=== PATIENT | male | born 1960 | race Caucasian/White ===

== ENCOUNTER 2016-09-08 14:03 | Day surgery (SDC) | payer OTHER ==
[~2016-09-08] VITALS: Ht 175.3 cm; Wt 86.6 kg
[~2016-09-08 14:03] MED LIST: ALBU18HF INH; BENZ200C44 PO; FERR325T39 PO; Lactated Ringer's 1,000 ML IV ONE; OMEP20TA24 PO; OMEP40CA36 PO; RANI75TA21 PO; Sodium Chloride LOK Flush 10 mL Syringe IV PRN; [UNRECOGNIZED DRUG - CODE] PO; fentaNYL-PF 50 mCg/mL 2 mL Inj IVPUSH PRN
[2016-09-08] MEDS ORDERED: Phenylephrine/NS 100 mCg/mL 10 mL Syringe IVPUSH ONE (14:04)
[2016-09-08] MEDS ORDERED: Ketamine 10 mg/mL 20 mL Inj ONE (14:04)
[2016-09-08] MEDS ORDERED: Propofol 10,000 mCg/mL 20 mL Inj ONE (14:04)
[2016-09-08 14:34] VITALS: BP 123/79; PULSE 89; RESP 14; O2SAT 96
[2016-09-08] MEDS: 0.9% Sodium Chloride 1,000 ML IV PRN ×2 (16:00→16:31)
[2016-09-08 16:45] VITALS: BP 90/59; PULSE 69; RESP 12; O2SAT 96
[2016-09-08 16:55] VITALS: BP 96/61; PULSE 69; RESP 16; O2SAT 99
--- NOTE | 2016-09-08 16:55 | PCM.ANEP2 ---
Post Anesthesia Evaluation ASA/CMS Post Anesthesia VS in Patient's Normal Range?: Yes Resp Stable; Airway Patent?: Yes CV Function & Hydration Stable: Yes Mental Status Recovered?: Yes Pain control Satisfactory?: Yes N/V Control Satisfactory?: Yes Iraj Jones MD Sep 08, 2016 16:55
--- NOTE | 2016-09-08 16:55 | PCM.ANEP1 ---
Post Anesthesia Phase 1 PACU Phase 1 Assessment Vital Signs Vital Signs Date Time Temp Pulse Resp B/P Pulse Ox O2 Delivery O2 Flow Rate FiO2 09/08/16 16:45 69 12 90/59 96 Room Air 09/08/16 14:34 89 14 123/79 96 Room Air Anesthetic Administered: GA Level of Alertness: Sleepy, easy to arouse HOOVER's with Equal Strength: Yes Pain: No Nausea or Vomiting: No Oxygen Delivery: Room Air Lungs: Clear to Auscultation Dermatome Level: Full Sensation Iraj Jones MD Sep 08, 2016 16:55
[2016-09-08 17:05] VITALS: BP 102/66; PULSE 67; RESP 16; O2SAT 97
[2016-09-08 17:15] VITALS: BP 94/64; PULSE 65; RESP 16; O2SAT 100
--- NOTE | 2016-09-09 03:11 | ENDO ---
[address] [address] ENDOSCOPY PROCEDURE PATIENT: GRZEGORZ FERRERA : 1960 MR#: [id number] ADMIT: 09/08/2016 JOB ID: [id number] DATE OF PROCEDURE: 09/08/2016 PREPROCEDURAL DIAGNOSES: 1. Hiatal hernia. 2. Anemia. POSTPROCEDURAL DIAGNOSES: 1. Paraesophageal hernia. 2. Esophagitis. 3. Anemia. 4. Probable Song's. PROCEDURE PERFORMED: Upper endoscopy with biopsies and Whitman probe placement. SURGEON: Angélica Robins MD. HISTORY OF PRESENT ILLNESS: This is a 56-year-old man who presented with symptomatic anemia with hematocrit in the 20s. He had a positive stool guaiac. He was evaluated by his primary care provider and recommendation was made for endoscopic evaluation. He has a long history of pathologic reflux and a large hiatal hernia seen on chest x-ray. He also has desire for consideration of anti-reflux surgery, if indicated. For this reason, he was consented for upper endoscopy, colonoscopy, and pH probe placement. FINDINGS: 1. Moderate paraesophageal hernia with approximately 1/4 of the stomach in the chest. 2. 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 Biopsies performed at multiple levels. 3. LA grade B esophagitis. 4. Whitman probe placed at 29 cm. 5. Squamocolumnar junction at 30 cm, GE junction at 36 cm, diaphragmatic hiatus at 43 cm. DESCRIPTION OF PROCEDURE: The patient was brought to the procedural suite and moderate sedation was induced. A bite block was placed. Endoscopy was attempted multiple times, but failed due to the patient's inability to tolerate moderate sedation. For this reason, Dr. Jones was brought to the room to avoid aspiration events given the patient's regurgitation, and with endoscopic placement the endoscope was advanced. He had moderate esophagitis and probable's Song's esophagus. Biopsies were performed at multiple levels within the Song's. The paraesophageal hernia was seen. Measurements are as described above. The duodenum was normal. The gastric mucosa was normal. The esophagus above 29 cm was normal. Retroflexed examination revealed paraesophageal hernia. Endoscope was withdrawn. Whitman catheter was placed and because biopsies had been performed at 30 cm, the Whitman probe was placed at 29 cm, 7 cm above the lower esophageal sphincter. The lower esophageal sphincter was 6 cm above the diaphragmatic hiatus. The endoscope was passed again and probe placement was confirmed. The endoscope was withdrawn. The colonoscopy then followed the endoscopy. ESTIMATED BLOOD LOSS: None. COMPLICATIONS: None. SPECIMENS: Distal esophagus.
--- NOTE | 2016-09-09 03:13 | ENDO ---
[address] [address] ENDOSCOPY PROCEDURE PATIENT: GRZEGORZ FERRERA : 1960 MR#: [id number] ADMIT: 09/08/2016 JOB ID: [id number] DATE OF PROCEDURE: 09/08/2016 PREPROCEDURAL DIAGNOSIS: Iron deficiency anemia. POSTPROCEDURAL DIAGNOSIS: Iron deficiency anemia. PROCEDURE PERFORMED: Colonoscopy. SURGEON: Angélica Robins MD. INSTRUMENT: Olympus [id number]. MEDICATIONS: Monitored anesthesia care. FINDINGS: Normal colonoscopy to the cecum, normal distal terminal ileum. The prep was excellent. HISTORY OF PRESENT ILLNESS: This is a 56-year-old man who was diagnosed with symptomatic iron deficiency anemia. He also had severe reflux and a known hiatal hernia. He was; therefore, consented for upper endoscopy and colonoscopy. The upper endoscopy was performed immediately before this procedure. Please see that report for separate details. DESCRIPTION OF PROCEDURE: The patient was brought to the procedure suite and placed in the left lateral decubitus position. After upper endoscopy, a digital rectal examination was performed and was normal. The colonoscope was advanced to the cecum and the terminal ileum was intubated. The distal 5 cm of terminal ileum appeared normal. The cecum was identified by the ileocecal valve and appendiceal orifice. The colonoscope was withdrawn over the course of 15 minutes. There were no polyps, strictures, masses, or diverticula. Retroflexed examination of the rectum revealed hemorrhoids. The colonoscope was withdrawn entirely. The patient tolerated the procedure well. ESTIMATED BLOOD LOSS: None. COMPLICATIONS: None. SPECIMENS: None.
--- NOTE | 2016-09-12 14:21 | PATH ---
SURGICAL PATHOLOGY Attending Physician:Angélica Robins MD CASE STATUS: Signed Out PATIENT NAME: GRZEGORZ FERRERA PID: [id number] : 1960 DATE COLLECTED:09/08/2016 00:00 SPECIMEN: 1: Esophagus, Biopsy 2: Esophagus, Biopsy 3: Esophagus, Biopsy CLINICAL HISTORY: 1). ESOPHAGUS AT 35CM BIOPSY 2). ESOPHAGUS AT 34CM BIOPSY 3). 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 Negative for dysplasia and malignancy. 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 Negative for dysplasia and malignancy. 3.ESOPHAGUS AT 30 CM, BIOPSY: SQUAMOUS MUCOSA WITH INFLAMMATORY CHANGES CONSISTENT WITH REFLUX. Negative for intestinal/Schmdit' s metaplasia. Negative for dysplasia and malignancy. ICD10 code K22.70 GROSS DESCRIPTION: The specimen is received in three formalin filled containers labeled with the patient's name. 1). The specimen is sublabeled "esophagus at 35 CM" and consists of a 0.1 x 0.1 x 0.1 CM portion of tissue which is entirely submitted in cassette 1A. 2). The specimen is sublabeled "esophagus at 34 CM" and consists of a 0.3 x 0.2 x 0.2 CM portion of tissue which is entirely submitted in cassette 2A. 3). The specimen is sublabeled "esophagus at 30 CM" and consists of a 0.2 x 0.2 x 0.1 CM portion of tissue which is entirely submitted in cassette 3A. 09/09/2016 [facility] MICRO DESCRIPTION: See diagnosis. ICD-9 CODES: CPT CODES: 1: 98882 2: 78096 3: 49328 Electronically Signed Out Talia Arreguin MD [facility] [address], [place] [address] Technical component performed at [facility], [address], [place], [address]
[2016-10-19] MEDS ORDERED: BENZ200C44 PO (08:27)
[2016-10-19] MEDS ORDERED: ASCO-294 PO (08:27)
[2016-10-19] MEDS ORDERED: ALBU18HF INH (08:27)
== END 2016-09-08 23:59 | disposition home or self-care (01) ==
LOC: END 14:03
PROVIDERS: ATTEND Surgery
DX: K22.70 Barrett's esophagus without dysplasia (principal); K44.9 Diaphragmatic hernia without obstruction or gangrene; D50.9 Iron deficiency anemia, unspecified; K92.2 Gastrointestinal hemorrhage, unspecified; R06.00 Dyspnea, unspecified; K21.9 Gastro-esophageal reflux disease without esophagitis
CPT/HCPCS: 43239; 45378; 91035; J2250; J2370; J3010; J7030

== ENCOUNTER 2016-09-12 11:16 | Day surgery (SDC) | payer OTHER ==
[~2016-09-12 11:16] MED LIST changes: -ALBU18HF INH; -BENZ200C44 PO; -Lactated Ringer's 1,000 ML IV ONE; -OMEP20TA24 PO; -Sodium Chloride LOK Flush 10 mL Syringe IV PRN; -[UNRECOGNIZED DRUG - CODE] PO; -fentaNYL-PF 50 mCg/mL 2 mL Inj IVPUSH PRN
[2016-10-19] MEDS ORDERED: BENZ200C44 PO (08:27)
[2016-10-19] MEDS ORDERED: ALBU18HF INH (08:27)
[2016-10-19] MEDS ORDERED: ASCO-294 PO (08:27)
== END 2016-09-12 23:59 | disposition home or self-care (01) ==
LOC: END 11:16 → EDUNIT# 14:30 → END 23:59
PROVIDERS: ATTEND Surgery
DX: K21.9 Gastro-esophageal reflux disease without esophagitis (principal); K44.9 Diaphragmatic hernia without obstruction or gangrene

== ENCOUNTER 2016-09-29 12:58 | Day surgery (SDC) | payer OTHER ==
[~2016-09-29] VITALS: Ht 172.7 cm; Wt 86.4 kg
[~2016-09-29 12:58] MED LIST changes: +Lactated Ringer's 1,000 ML IV ONE; +Lidocaine Topical 2% 30 mL Jelly ONE; -RANI75TA21 PO
[2016-09-29] MEDS ORDERED: Propofol 10,000 mCg/mL 20 mL Inj ONE (12:59)
[2016-09-29] MEDS ORDERED: fentaNYL-PF 50 mCg/mL 2 mL Inj ONE (12:59)
[2016-09-29 14:18] VITALS: BP 110/75; PULSE 82; RESP 14; O2SAT 100
--- NOTE | 2016-09-29 14:57 | PCM.HPANE ---
Patient Data Date of Service: Sep 29, 2016 (0578) Surgeon Admitting Provider: Attending Provider:Angélica Robins MD Primary Care Physician:Helio Galeano DO Other Provider:Rosetta Correa Anesthesia Reason for Visit Barretts Esophagus Ht/WT & BMI Height (Feet): 5 Height (Inches): 8 Weight (Kilograms): 86.36 Body Mass Index 28.00 Allergies Coded Allergies: erythromycin base (Verified Allergy, Intermediate, hives, 09/07/16) Past Anesthesia History Anesthesia History: Denies:: Abnormal Airway, Anesthesia Reactions, Difficult Intubation, Fam Anesthesia Reaction, Fam Malignant Hypertherm, Malignant Hyperthermia Diabetes History Hx Diabetes?: No MRSA MRSA: No Medications Reported Medications Omeprazole 40 Mg Capsule.dr40 Mg PO DAILY Ref 0 09/07/16 Ferrous Sulfate (Iron)325 Mg [id number] Mg PO BID 09/07/16 Discontinued Reported Medications Ranitidine (Zantac OTC)75 Mg Pzakrp15 Mg PO BID #1 PKG Ref 0 09/07/16 History HEENT History: Denies:: Abnormal Airway Difficult Intubation Dysphagia Hearing Problem Hx of Heart Problems?: No Hx of Respiratory Problem?: No Respiratory History: Denies:: Tuberculosis Neurological History: Denies:: CVA Hx of GI Problems?: Yes Gastrointestinal History: Positive for:: Gastroesphageal Reflux Hiatal Hernia Denies:: Cirrhosis Diverticulitis Gall Bladder Disease Liver Disease Rectal Bleeding Musculoskeletal History: Denies:: Fibromyalgia Joint Replacement Psycho Social History: Denies:: Anxiety Hx Depression Hx Surgeries?: Yes (SINUS X2, APPY, TONSIL) Hx Any Other Health Problems?: No Hx Diabetes: No Hx Alcohol Use: Yes (RARE) Smoking Status: Never Smoker Stop/Bang Treated for Sleep Apnea?: Yes (10/2016 APPOINTMENT) Do You Have a CPAP Machine?: No S-Snoring: Do You Snore Loudly: Yes T-Tired: feel tired, fatigued: Yes O-Obsered: Observed not breath: Yes B- Body Mass Index > 35 kg/m2: No A- Age over 50: Yes N- Neck Large Circumference: No G- Gender Male: Yes Risk Assessment Category Category 1A: Patient has history of documented sleep apnea, and HAS NOT received any narcotic, sedative or anesthesia administration during this stay. Category 1B: Patient has history of documented sleep apnea, and HAS received any narcotic , sedative or anesthesia administration during this stay Category 2: Patient has SUSPECTED Obstructive Sleep Apnea, and HAS received any narcotic , sedative or anesthesia administration during this stay. Category 3: Patient has SUSPECTED Obstructive Sleep Apnea and HAS NOT received narcotic, sedative or anesthesia administration during this stay. Category 4: Outpatient in Procedural Areas with known sleep apnea or who screen positive for High Risk via the STOP/BANG questionnaire. Exam Exam Vital Signs Vital Signs Date Time Temp Pulse Resp B/P Pulse Ox O2 Delivery O2 Flow Rate FiO2 09/29/16 14:18 82 14 110/75 100 Room Air General Appearance: Alert, Oriented X3, Cooperative, No Acute Distress HEENT/AIRWAY: MP 2 Lungs: Clear to Auscultation Heart: Exam Unremarkable Meds/Labs/Diagnostics Admission Meds Current Medications Lactated Ringer's (Lr) 1,000 ml @ 10 mls/hr Q24H ONCE IV Last administered on 09/29/16t 14:32; Start 09/29/16 at 06:00; Stop 09/30/16 at 05:59 Plan Impression Patient chart reviewed, patient interviewed and anesthestic plan with risks, benefits, and alternatives discussed, and informed consent obtained. ASA Physical Status: ASA2 Mod Systemic Disease Anesthetic Plan: MAC Bene/Risks/Altern/Consents: Yes HP Complete Prior to Induction: Yes Saad Vazquez MD Sep 29, 2016 14:57
[2016-09-29 15:28] VITALS: BP 105/67; PULSE 70; RESP 16; O2SAT 94
[2016-09-29 15:38] VITALS: BP 107/72; PULSE 63; RESP 16; O2SAT 95
--- NOTE | 2016-09-29 15:40 | PCM.ANEP2 ---
Post Anesthesia Evaluation ASA/CMS Post Anesthesia VS in Patient's Normal Range?: Yes Resp Stable; Airway Patent?: Yes CV Function & Hydration Stable: Yes Mental Status Recovered?: Yes Pain control Satisfactory?: Yes N/V Control Satisfactory?: Yes Saad Vazquez MD Sep 29, 2016 15:40
[2016-09-29 15:48] VITALS: BP 110/79; PULSE 65; RESP 16; O2SAT 97
--- NOTE | 2016-09-30 02:39 | ENDO ---
[address] [address] ENDOSCOPY PROCEDURE PATIENT: GRZEGORZ FERRERA : 1960 MR#: [id number] ADMIT: 09/29/2016 JOB ID: [id number] DATE OF PROCEDURE: 09/29/2016 PREPROCEDURAL DIAGNOSIS: Long segment Song's esophagus. POSTPROCEDURAL DIAGNOSIS: Long segment Song's esophagus. PROCEDURE PERFORMED: Upper endoscopy with biopsies x 21 SURGEON: Angélica Robins MD. INSTRUMENT: Olympus [id number]. ANESTHESIA: Monitored anesthesia care FINDINGS: Long segment Song's esophagus, C6 M7. The diaphragm was at 46 cm, lower esophageal sphincter at 36 cm, consistent with his known diagnosis of hiatal hernia; and Song's esophagus extended to 30 cm circumferentially and 29 cm to the proximal aspect of the longest tongue of Song's. DESCRIPTION OF PROCEDURE: The patient was brought to the procedure suite and placed in left lateral decubitus position. Monitored anesthesia care was provided. A bite block was placed. The upper endoscope was advanced through the oropharynx into the esophagus, stomach, and to the proximal third portion of the duodenum. The duodenal mucosa within the bulb appeared somewhat heaped-up; and therefore, a biopsy was obtained. The endoscope was withdrawn and the gastric mucosa appeared normal. A large hiatal hernia was visualized and the diaphragm was at 46 cm, lower esophageal sphincter at 36 cm. Long segment Song's was seen as had been previously diagnosed; narrow band imaging was used and no outstanding mucosal abnormalities were identified with this modality. Four-quadrant biopsies were obtained at 36 cm, 34 cm, 32 cm, 30 cm, and 28 cm. The total number of biopsies within the esophagus was 20. No complications occurred. The endoscope was withdrawn. The patient tolerated the procedure well. ESTIMATED BLOOD LOSS: 2 mL. COMPLICATIONS: None. SPECIMENS: 1. Duodenal bulb. 2. Esophagus at 36 cm. 3. Esophagus at 34 cm. 4. Esophagus at 32 cm. 5. Esophagus at 30 cm. 6. Esophagus at 28 cm. MTDD
--- NOTE | 2016-10-03 15:00 | PATH ---
SURGICAL PATHOLOGY Attending Physician:Angélica Robins MD CASE STATUS: Signed Out PATIENT NAME: GRZEGORZ FERRERA PID: [id number] : 1960 DATE COLLECTED:09/29/2016 00:00 SPECIMEN: 1: Duodenum, Biopsy 2: Esophagus, Biopsy 3: Esophagus, Biopsy 4: Esophagus, Biopsy 5: Esophagus, Biopsy 6: Esophagus, Biopsy CLINICAL HISTORY: 1). DUODENAL BX 2). ESOPHAGEAL @ 36CM BX 3). ESOPHAGEAL @ 34CM BX 4). ESOPHAGEAL @ 32CM BX 5). ESOPHAGEAL @ 30 CM BX 6). ESOPHAGEAL @ 28 CM BX FINAL DIAGNOSIS: 1. Duodenal Biopsy: Duodenal mucosa with no diagnostic alterations. Negative for inflammation, celiac, dysplasia and malignancy. 2. Esophageal Biopsy at 36 cm: Intestinal metaplasia consistent with Song's esophagus, three of four fragments. Negative for dysplasia and malignancy. 3. Esophageal Biopsy at 34 cm: Intestinal metaplasia consistent with Song's esophagus, three of three fragments. Negative for dysplasia and malignancy. 4. Esophageal Biopsy at 32 cm: Intestinal metaplasia consistent with Song's esophagus, three of three fragments. Negative for dysplasia and malignancy. 5. Esophageal Biopsy at 30 cm: Intestinal metaplasia consistent with Song's esophagus, four of four fragments. Negative for dysplasia and malignancy. 6. Esophageal Biopsy at 28 cm: Intestinal metaplasia consistent with Song's esophagus, one of three fragments. Negative for dysplasia and malignancy. ICD10 K22.70 GROSS DESCRIPTION: The specimen is received in six formalin filled containers labeled with the patient's name. 1). The specimen is sublabeled "duodenal" and consists of a 0.3 x 0.2 x 0.2 CM portion of tissue which is entirely submitted in cassette 1A. 2). The specimen is sublabeled "esophagus at 36 CM" and consists of 3 portions of tissue which aggregate to 0.4 x 0.4 x 0.2 CM. The specimen is entirely submitted in cassette 2A. 3). The specimen is sublabeled "esophageal at 34 CM" and consists of 4 portions of tissue which aggregate to 0.3 x 0.3 x 0.2 CM. The specimen is entirely submitted in cassette 3A. 4). The specimen is sublabeled "esophageal at 32 CM" and consists of 3 portions of tissue which aggregate to 0.3 x 0.3 x 0.2 CM. The specimen is entirely submitted in cassette 4A. 5). The specimen is sublabeled "esophagus at 30 CM" and consists of 4 portions of tissue which aggregate to 0.4 x 0.4 x 0.2 CM. The specimen is entirely submitted in cassette 5A. 6). The specimen is sublabeled "esophageal at 28 CM" and consists of 3 portions of tissue which aggregate to 0.3 x 0.3 x 0.2 CM. The specimen is entirely submitted in cassette 6A. 09/30/2016 [facility] MICRO DESCRIPTION: Please see diagnosis. ICD-9 CODES: CPT CODES: 1: 28579 2: 34963 3: 75108 4: 43281 5: 47581 6: 85188 Electronically Signed Out Talia Arreguin MD [facility] [address], [place] [address] Technical component performed at [facility], [facility] [address], [place], [address]
[2016-10-19] MEDS ORDERED: BENZ200C44 PO (08:27)
[2016-10-19] MEDS ORDERED: ALBU18HF INH (08:27)
[2016-10-19] MEDS ORDERED: ASCO-294 PO (08:27)
== END 2016-09-29 23:59 | disposition home or self-care (01) ==
LOC: END 12:58
PROVIDERS: ATTEND Surgery
DX: K22.70 Barrett's esophagus without dysplasia (principal); K44.9 Diaphragmatic hernia without obstruction or gangrene; K20.9 Esophagitis, unspecified; D64.9 Anemia, unspecified; K21.9 Gastro-esophageal reflux disease without esophagitis

== ENCOUNTER 2016-10-21 05:45 | Inpatient (IN) | payer OTHER ==
[~2016-10-21] VITALS: Ht 175.3 cm; Wt 89.6 kg
[2016-10-21] VITALS (10 sets, daily range): BP systolic 100–125; BP diastolic 62–78; PULSE 60–97; RESP 12–18; O2SAT 95–98
[2016-10-21] MEDS: Lactated Ringer's 1,000 ML IV SCH ×3 (05:00→07:33)
[~2016-10-21 05:45] MED LIST changes: +ALBU18HF INH; +ASCO-294 PO; +BENZ200C44 PO; -Lactated Ringer's 1,000 ML IV ONE; -Lidocaine Topical 2% 30 mL Jelly ONE
[2016-10-21] MEDS ORDERED: CeFAZolin Inj 2 gm / 50mL D5W IV ONE (05:56)
[2016-10-21] MEDS ORDERED: CeFAZolin 2 Gm/50 mL D5W IV Premix IV ONE (06:00)
--- NOTE | 2016-10-21 07:18 | PCM.HPANE ---
Patient Data Surgeon Admitting Provider: Attending Provider:Angélica Robins MD Primary Care Physician:Helio Galeano DO Other Provider:Danika Correaingham Anesthesia Reason for Visit Paraesophageal Hernia Ht/WT & BMI Height (Feet): 5 Height (Inches): 9 Weight (Kilograms): 89.6 Body Mass Index 29.00 Allergies Coded Allergies: erythromycin base (Verified Allergy, Severe, HIVES,SKIN RASH, 10/19/16) Past Anesthesia History Anesthesia History: Denies:: Abnormal Airway, Anesthesia Reactions, Difficult Intubation, Fam Anesthesia Reaction, Fam Malignant Hypertherm, Malignant Hyperthermia Diabetes History Hx Diabetes?: No MRSA MRSA: No Medications Home Meds Incl Beta Steph: No Reported Medications Ascorbate Calcium (Vitamin C)500 Mg [id number] Mg PO BID TAKE W/ FERROUS SULFATE 10/19/16 Albuterol Sulfate (Ventolin HFA Inhaler)200 Puff/18 Gm Inhaler1 Puff INH Q4 PRN For Wheezing #1 INHALER Ref 0 10/19/16 Benzonatate 200 Mg [id number] Mg PO TID PRN PRN 10/19/16 Omeprazole 40 Mg Capsule.dr40 Mg PO BID Ref 0 09/07/16 Ferrous Sulfate (Iron)325 Mg Fcichk090 Mg PO BID TAKE W/ VIT C 09/07/16 History History of ENT Problems?: Yes HEENT History: Positive for:: Sinus Problem (S/P SINUS SURGERY X2) Denies:: Abnormal Airway Difficult Intubation Dysphagia Hearing Problem Denture Type: None Teeth Condition: Within Normal Limits Other HEENT Pertinent History: S/P TONSILLECTOMY Hx of Heart Problems?: Yes Cardiovascular History: Denies:: Heart Murmur Hypertension Other Cardiac History: HX ANEMIA Hx of Respiratory Problem?: Yes Respiratory History: Positive for:: Cough (HX RECENT URI) Denies:: Tuberculosis Use of C-PAP Machine (SUSPECTED JUDAH+--SCHED FOR SLEEP W/U 10/2016 ) Hx Neurologic Problems?: Yes Neurological History: Denies:: CVA Dementia Hx of GI Problems?: Yes Other GI Pertinent History: S/P APPY Hx of Problems?: No Male Hx: Denies:: Prostate Problems Scrotal Mass Testicular Surgery Skin History: Denies:: History Skin Disorders? Pressure Ulcers Hx Musculoskeletal Problems?: No Musculoskeletal History: Denies:: Joint Replacement Hx of Psycho/Social Problems?: No Psycho Social History: Denies:: Anxiety Hx Depression Hx Surgeries?: Yes (SINUS X2, APPY, TONSIL) Hx Any Other Health Problems?: Yes Other History: Denies:: Cancer Endocrine Disease Hospitalization Thyroid Disease Hx Diabetes: No Hx Alcohol Use: Yes (RARE)Hx Substance Use: No Smoking Status: Never Smoker Have You Smoked inLast 12 mo: No Stop/Bang S-Snoring: Do You Snore Loudly: No T-Tired: feel tired, fatigued: Yes O-Obsered: Observed not breath: No P-Blood Pressure: treated: No B- Body Mass Index > 35 kg/m2: No A- Age over 50: Yes N- Neck Large Circumference: No G- Gender Male: Yes JUDAH Total Score: 3 JUDAH Risk Assessment: High Risk, =/>3 Yes JUDAH Category 2: Yes Risk Assessment Category Category 1A: Patient has history of documented sleep apnea, and HAS NOT received any narcotic, sedative or anesthesia administration during this stay. Category 1B: Patient has history of documented sleep apnea, and HAS received any narcotic , sedative or anesthesia administration during this stay Category 2: Patient has SUSPECTED Obstructive Sleep Apnea, and HAS received any narcotic , sedative or anesthesia administration during this stay. Category 3: Patient has SUSPECTED Obstructive Sleep Apnea and HAS NOT received narcotic, sedative or anesthesia administration during this stay. Category 4: Outpatient in Procedural Areas with known sleep apnea or who screen positive for High Risk via the STOP/BANG questionnaire. Exam Exam Vital Signs Vital Signs Date Time Temp Pulse Resp B/P Pulse Ox O2 Delivery O2 Flow Rate FiO2 10/21/16 06:07 36.1 77 17 121/78 95 Room Air General Appearance: Alert HEENT/AIRWAY: MP 2, Mouth Opening (Limited) Lungs: Clear to Auscultation Heart: Exam Unremarkable Additional Information Patient has Hx of sore throat after intubation Meds/Labs/Diagnostics Admission Meds Current Medications Lactated Ringer's (Lr) 1,000 ml @ 120 mls/hr Q8H20M IV Last administered on 05:47; Start 10/21/16 at 05:00; Stop 10/21/16 at 13:19 Gabapentin (Neurontin) 600 mg PREOP ONCE PO Last administered on 10/21/16 06: 02; Start 10/21/16 at 06:00; Stop 10/21/16 at 06:01; Status DC Celecoxib (CeleBREX) 200 mg PREOP ONCE PO Last administered on 10/21/16 06:02 ; Start 10/21/16 at 06:00; Stop 10/21/16 at 06:01; Status DC Scopolamine (Transderm-Scop Patch) 1.5 mg ONCE ONCE TOPICAL Last administered on 10/21/16 06:02; Start 10/21/16 at 05:00; Stop 10/21/16 at 05:01; Status DC Plan Impression Patient chart reviewed, patient interviewed and anesthestic plan with risks, benefits, and alternatives discussed, and informed consent obtained. ASA Physical Status: ASA2 Mod Systemic Disease Anesthetic Support Modalities: [place] Scope Anesthetic Plan: GA Bene/Risks/Altern/Consents: Yes HP Complete Prior to Induction: Yes Sheldon Donovan MD Oct 21, 2016 07:18
[2016-10-21] MEDS ORDERED: Lactated Ringer's 1,000 ML IV SCH (07:49)
[2016-10-21] MEDS ORDERED: Lactated Ringer's 500 ML IV PRN (07:49)
[2016-10-21] MEDS ORDERED: HYDROmorphone 1 mg/mL Inj IVPUSH PRN (07:50)
[2016-10-21] MEDS ORDERED: Phenylephrine 10,000 mCg/mL Inj IVPUSH PRN (07:50)
[2016-10-21] MEDS ORDERED: MetoCLOpramide 5 mg/mL 2 mL Inj IVPUSH PRN ×2 (07:50→11:15)
[2016-10-21] MEDS ORDERED: Dexamethasone 4 mg/mL Inj IVPUSH PRN (07:50)
[2016-10-21] MEDS ORDERED: EPHEDrine Sulfate 50 mg/mL Inj IVPUSH PRN (07:50)
[2016-10-21] MEDS ORDERED: Ondansetron 2 mg/mL 2 mL Inj IVPUSH PRN ×2 (07:50→11:15)
[2016-10-21] MEDS ORDERED: Bupivacaine-MPF 0.25%/EPI 30 mL Inj INJ ONE (08:36)
[2016-10-21] MEDS ORDERED: Lactated Ringer's 1,000 ML IV ONE (09:30)
[2016-10-21] MEDS: fentaNYL-PF 50 mCg/mL 2 mL Inj IVPUSH PRN ×2 (11:10→11:35)
[2016-10-21] MEDS ORDERED: Acetaminophen 32 mg/mL 5 mL Liquid PO SCH ×3 (11:15→14:05)
[2016-10-21] MEDS ORDERED: ProchlorPERazine 5 mg/mL 2 mL Inj IVPUSH PRN (11:15)
--- NOTE | 2016-10-21 11:15 | PCM.ANEP1 ---
Post Anesthesia Phase 1 PACU Phase 1 Assessment Vital Signs Pacu: 125/74 sat 96 p 82 rr 18 awake and doing well Vital Signs Date Time Temp Pulse Resp B/P Pulse Ox O2 Delivery O2 Flow Rate FiO2 10/21/16 06:07 36.1 77 17 121/78 95 Room Air Anesthetic Administered: GA Level of Alertness: Awake, talking HOOVER's with Equal Strength: Yes Pain: No Nausea or Vomiting: No Cardiovascular Function and Hy: Yes Oxygen Delivery: Room Air Lungs: Clear to Auscultation Dermatome Level: Full Sensation Complications: No Follow up Care: No Patient Instructions Provided: Yes Sheldon Donovan MD Oct 21, 2016 11:15
--- NOTE | 2016-10-21 11:25 | PCM.SURGOP ---
Surgical Operative Report Date of Service: Oct 21, 2016 Pre Operative Diagnosis Paraesophageal hernia Post Operative Diagnosis Paraesophageal hernia Procedure: Laparoscopic paraesophageal hernia repair Surgeon and Filtering Machine Tender: Surgeon: Angélica Robins MD Assistants: Loc Downey MD; Dominic Wing PA-C Surgical assistants were necessary for dissection and retraction. Indication for Procedure This is a 56-year-old man who presented with fatigue and weakness and was found to have severe anemia. He underwent workup including upper and lower endoscopy. There were no findings on his colonoscopy, but he was found to have a nonreducible paraesophageal hernia with approximately 20-25% of the stomach in the chest. 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 Four-quadrant biopsies every 2 cm revealed no evidence of dysplasia. 48 hour pH study was severely abnormal and esophageal motility was normal on manometry. He also had suffered from severe symptoms of reflux for many years. For all of these reasons, hiatal hernia repair was recommended. Findings: 1. Small-moderate paraesophageal hernia with approximately 25% of the stomach in the chest. 2. Crura were closed primarily. 3. 270 Toupet fundoplication was performed. Procedure Details The patient was brought to the operating room and placed in supine position. General endotracheal anesthesia was smoothly induced. A warming blanket and SCDs were placed. The patient was repositioned into low lithotomy with the left arm tucked. Antibiotics were infused. The operative field was prepped and draped in a sterile fashion. A pause was performed to confirm the correct patient, procedure, and site. The abdomen was accessed using a Veress needle in the left upper quadrant after controlling the fascia and was insufflated. An 11 mm Optiview port was inserted and intraperitoneal insufflation began. An 11 mm port was then placed in the mid abdomen just to the left of midline. The 5 mm port was placed in the mid abdomen laterally on the left. A 5mm liver retractor was used with placement in a right lateral position. A 5mm trocar was placed in the right upper quadrant. An additional 5 mm port was placed in the left mid abdomen for the care assistant's left hand. The stomach was identified and carefully reduced out of the mediastinum. The phrenogastric ligament was taken down With a combination of sharp and blunt dissection. The short gastrics were taken down using LigaSure device. Dissection proceeded at the hiatus starting on the left. The plane between the hernia sac and pleura was entered and the hernia sac was carefully removed from the mediastinum. No defects were made in the pleura during this portion of the dissection. The gastrohepatic ligament was then divided up to the right leodan and the right sided dissection was completed with care taken to preserve the entire leodan and both vagi. Once the esophagus was fully dissected circumferentially, a Jaycee drain was then placed around the esophagus at the gastroesophageal junction for retraction to facilitate a more proximal esophageal dissection. This proceeded proximally until there was 5 cm of intra- abdominal esophagus. The crural closure was then performed. Several 2-0 silk stitches were placed to reapproximate the posterior crura with minimal tension. The reduced hernia sac was removed using the LigaSure device, with care taken to avoid injury to the stomach, esophagus, or vagus during this portion of the procedure. Attention was turned to the to Toupet fundoplication. A Toupet was chosen due to data demonstrating that it is equivalent for postoperative reflux but improves postoperative dysphagia and gas bloat, and the risk of bougie placement is avoided. A marking stitch was placed on the posterior fundus, 3 cm distal to the gastroesophageal junction and 2 cm posterior to the greater curvature. This was brought around posteriorly to align the geometry of the fundoplication. The first stitch was placed in the fundus just proximal to the marking stitch, to the esophagus at and 11 o'clock position, and to the right leodan at the 11 o'clock position. The second stitch was placed from the posterior aspect of the right fundoplication to the bilateral crura posteriorly. The Meldrim drain was removed. Two additional stitches were then placed from the right side of the fundoplication to an 11 o'clock position on the esophagus. Care was taken to avoid inclusion of the anterior vagus in the stitches. The marking stitch was removed. Attention was then turned to the left side of the wrap. An appropriate position on the fundus was chosen to create symmetrical geometry of the fundoplication. The first stitch on the left was placed from the wrap to the esophagus to the leodan, again with care taken to avoid inclusion of the anterior vagus in the stitch. Three additional sutures were then placed from the wrap to the esophagus, each 1 cm distal to the previous one. Once the procedure was complete, the 11 mm port site in the left mid abdomen was closed with an interrupted 2-0 PDS using a fascial closure device. The remaining ports were removed under direct vision and the abdomen was desufflated. 0.5% Marcaine with epinephrine was infused at all port sites. Skin was closed with 4-0 Monocryl. Sterile dressings were placed. All sponge, instrument, and needle counts were correct at the end of the procedure. The patient was awakened from general anesthesia and taken to the postoperative care unit in good condition. Complications There were no periprocedural complications identified. Surgical Specimen Removed: Yes Specimen sent to Pathology: No Surgical Specimen description: Hernia sac Anesthetic Plan: GA Grafts, Implants: None Output, Estimated Blood Loss: 5 (ml) Blood Administration during foster: No Angélica Robins MD Oct 21, 2016 11:25
[2016-10-21 12:21] LABS: Mean Corpuscular Hemoglobin 24.5 pg (27.0-35.0); Mean Corpuscular Volume 80.3 fL (81-100)
[2016-10-21] MEDS: Dextrose 5% Lactated Ringer's 1,000 ML IV SCH (12:58)
--- NOTE | 2016-10-21 13:10 | PCM.DISURG ---
Surgical Discharge Instruction Date of Service Oct 21, 2016 Dates of Hospitalization Date of Hospital Admission Oct 21, 2016 at 12:24 Providers Admitting Physician: Angélica Robins MD Primary Care Physician: Helio Galeano DO Attending Physician: Angélica Robins MD Discharge Diagnosis Discharge Diagnosis Paraesophageal hernia Post Operative diagnosis Paraesophageal hernia Diet Discharge Diet: Other (Liquid/pureed only) Activity Discharge Activity-General: No lifting >15 pounds for 2 weeks Dressing and Incisional Care Dressing Care: Allow Steri Stripes to fall off, Remove outer dressing after 24 hrs Hygiene: May shower Additional Instructions Discharge Instructions Follow up with Dr. Robins in 2 weeks. Angélica Robins MD Oct 21, 2016 13:10
[2016-10-21] MEDS ORDERED: OXYC5SOL11 PO (13:11)
[2016-10-21] MEDS ORDERED: Propofol 10,000 mCg/mL 20 mL Inj ONE (13:27)
[2016-10-21] MEDS ORDERED: EPHEDrine/NS 5 mg/mL 5 mL Syringe ONE (13:27)
[2016-10-21] MEDS ORDERED: Ondansetron 2 mg/mL 2 mL Inj ONE (13:27)
[2016-10-21] MEDS ORDERED: Dexamethasone 4 mg/mL Inj ONE (13:27)
[2016-10-21] MEDS ORDERED: fentaNYL-PF 50 mCg/mL 2 mL Inj ONE (13:27)
[2016-10-21] MEDS ORDERED: Phenylephrine/NS 100 mCg/mL 10 mL Syringe IVPUSH ONE (13:27)
[2016-10-21] MEDS ORDERED: MetoCLOpramide 5 mg/mL 2 mL Inj ONE (13:27)
[2016-10-21] MEDS ORDERED: Rocuronium 10 mg/mL 5 mL Inj ONE (13:27)
--- NOTE | 2016-10-21 13:32 | NUR ---
POST OP Patient arrived to room #1023 at 1230, denies pain, nausea, and shortness of breath. O2 2L NC sat 96%. Arroyo catheter in place clear urine to gravity. HOB>30 degrees, D5LR 80mls/hr, Scoch patch, VSS, pulse Ox set up, SCD's, lap sites x4 c/d/i, oriented to room/hospital/policies and patient resting quietly.
[2016-10-21] MEDS ORDERED: Acetaminophen 32.5 mg/mL 20 mL Liquid PO PRN (14:10)
[2016-10-21] MEDS: Acetaminophen 32.5 mg/mL 20 mL Liquid PO SCH ×2 (14:45→20:27)
[2016-10-21] MEDS: oxyCODONE 1 mg/mL 5 mL Liquid PO PRN ×2 (15:07→23:21)
[2016-10-21] MEDS: Heparin 5,000 Unit/mL Inj SUBQ SCH (16:57)
[2016-10-22] MEDS: Dextrose 5% Lactated Ringer's 1,000 ML IV SCH ×2 (00:20→12:15)
[2016-10-22] MEDS: Heparin 5,000 Unit/mL Inj SUBQ SCH ×2 (00:29→07:30)
[2016-10-22] MEDS: Acetaminophen 32.5 mg/mL 20 mL Liquid PO SCH ×2 (02:59→07:29)
[2016-10-22 04:27] VITALS: BP 116/73; PULSE 67; RESP 16; O2SAT 100
--- NOTE | 2016-10-22 06:06 | NUR ---
Pain/Resp Pt reported pain well controlled overnight with scheduled Tylenol and PRN oxycodone. Patient has not been out of bed this shift. Curz MELO'd at 0530, has not yet spontaneously voided. SpO2 mid 90's on 3L via oxymask while asleep. Patient verbalized understanding to use call light prior to ambulating. Care continues.
[2016-10-22] MEDS: oxyCODONE 1 mg/mL 5 mL Liquid PO PRN ×2 (07:30→12:37)
[2016-10-22 07:47] LABS: Mean Corpuscular Hemoglobin 24.9 pg (27.0-35.0); Mean Corpuscular Volume 80.4 fL (81-100)
[2016-10-22 09:52] VITALS: BP 119/78; PULSE 65; RESP 16; O2SAT 95
--- NOTE | 2016-10-22 11:21 | PROG NOTE ---
[address] [address] PROGRESS NOTE PATIENT: GRZEGORZ FERRERA : 1960 MR#: [id number] ADMIT: 10/21/2016 JOB ID: [id number] DATE: 10/22/2016 SUBJECTIVE: Postop day one laparoscopic hiatal hernia repair. He is doing quite well, stable vital signs, tolerating p.o. and oral pain medications. OBJECTIVE: Abdomen is soft, incisions are healing well. LABORATORIES: White count is 11.2, hematocrit is 36.5. Chemistries are within normal limits. Glucose is 97. IMPRESSION AND PLAN: Doing quite well. He will get up and be certain that he is steady on his feet this morning, be seen by the dietitians for routine postoperative consultation, and will go home later today.
--- NOTE | 2016-10-22 11:26 | NUR ---
SW - Brief Note/ Discharge Data: Pt is 56 y/o male admitted 10/21/16 for paraesophageal hernia per H&P and is ready for discharge today per morning rounds. Pain is under control and Dietitian has seen pt re: diet restrictions. Pt resides at home with and is independent at baseline. Insurance is [employer] [facility] and PCP is Helio Galeano MD. Pt reports he has completed DPOA/Advanced Care Directive paperwork and SW requested a copy for the hospital. Pt will discharge home via in POV with no needs assessed. All updated and agreeable to plan. Assessment: Pt who is independent at baseline Plan: Pt to discharge home via POV with no needs. FARZANA Sal
--- NOTE | 2016-10-22 13:17 | NUR ---
Discharge Pt discharged to home with family; A&Ox3, HOOVER, VSS, Pain tolerable - received pain medication prior to dc, IV dcd intact by SN2, Voiding without issue post gross removal prior to start of shift, Dressings CDI, Tolerating PO at this time - clear/puree diet - glass cleaner did see and speak with pt prior to dc, CareNotes and instructions provided on dc dx and s/sx to seek medical attention for, Hard copy script provided to pt, All personal belongings in hand at dc. Getting dressed and then will be ready to leave... Addendum: 10/22/16 at 1357 by JACKI MCGHEE RN Pt wheeled off unit to vehicle at ~1330.
--- NOTE | 2016-10-25 08:02 | PCM.DC.SUR ---
Discharge Summary Date of Service: Date of Hospital Admission: Oct 21, 2016 at 12:24 Date of Operation(s): 10/21/2016 Date of Discharge: 10/22/2016 Diagnosis at Time of Discharge 1. Paraesophageal hernia 2. Reflux 3. Anemia of chronic disease 4. Possible obstructive sleep apnea Problems: Operation Laparoscopic paraesophageal hernia repair Brief History and Physical: This is a 56-year-old man who presented with fatigue and weakness and was found to have severe anemia. He underwent workup including upper and lower endoscopy. There were no findings on his colonoscopy, but he was found to have a nonreducible paraesophageal hernia with approximately 20-25% of the stomach in the chest. 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 Four-quadrant biopsies every 2 cm revealed no evidence of dysplasia. 48 hour pH study was severely abnormal and esophageal motility was normal on manometry. He also had suffered from severe symptoms of reflux for many years. Consultants: None Hospital Course: The patient was admitted and underwent the above-mentioned operation without complication. He was stable for discharge the following day. Pathology: None Disposition: The patient was discharged to home on his first postsurgical day. Follow-up Plan: He will follow-up in the office with Dr. Robins in 2 weeks. Albuterol Sulfate (Ventolin HFA Inhaler) 200 Puff/18 Gm Inhaler 1 PUFF INH Q4 PRN PRN For Wheezing (Reported) Ascorbate Calcium (Vitamin C) 500 Mg Tablet 500 MG PO BID (Reported) TAKE W/ FERROUS SULFATE oxyCODONE (oxyCODONE) 5 Mg/5 Ml Solution 5-10 MG PO Q4 PRN PRN pain copies to: Helio Galeano Fred H PA-C October 25, 2016 08:02
== END 2016-10-22 13:28 | disposition home or self-care (01) | DRG 328 ==
LOC: SAS 05:45 → OSC 12:24
PROVIDERS: ADMIT Surgery; ATTEND Surgery
PROC: 0BQR4ZZ (ICD-10-PCS; 2016-10-21)
PROC: 0BQS4ZZ (ICD-10-PCS; principal; 2016-10-21 07:30)
DX: K44.9 Diaphragmatic hernia without obstruction or gangrene (principal); D64.9 Anemia, unspecified; G47.33 Obstructive sleep apnea (adult) (pediatric); K22.70 Barrett's esophagus without dysplasia